=== PATIENT | male | born 1970 | race Caucasian/White ===

== ENCOUNTER 2016-08-05 11:46 | Emergency (ER) | payer MEDICAID ==
[~2016-08-05] VITALS: Ht 157.5 cm; Wt 67.2 kg
[~2016-08-05 11:46] MED LIST: [UNRECOGNIZED DRUG - CODE]
[2016-08-05 11:52] VITALS: Ht 157.5 cm; Wt 67.2 kg
== END 2016-08-05 14:28 | disposition left against medical advice (07) ==
LOC: FTE 11:46
DX: Z53.21 Procedure and treatment not carried out due to patient leaving prior to being seen by health care provider (principal)

== ENCOUNTER 2017-05-30 22:41 | Emergency (ER) | END 2017-05-31 03:00 | disposition home or self-care (01) ==

== ENCOUNTER 2018-08-14 05:11 | Emergency (ER) | payer MEDICAID ==
[~2018-08-14] VITALS: Ht 167.6 cm; Wt 71.8 kg
[~2018-08-14 05:11] MED LIST changes: +DICY10SO PO; +HYDR-4011 PO; +IBUP-1542 PO; +ONDA4TAB14 PO
[2018-08-14 05:15] VITALS: Ht 167.6 cm; Wt 71.8 kg
[2018-08-14] MEDS ORDERED: morphine 4 MG/ML VIAL IV STA (07:34)
[2018-08-14] MEDS ORDERED: FAMOTIDINE 20 MG INJ IV STA (07:34)
[2018-08-14] MEDS ORDERED: SOD CHLORIDE 0.9% 1,000 ML IV STA ×2 (07:34→08:23)
[2018-08-14] MEDS ORDERED: BELLADONNA/PHENOBARBITAL TAB PO STA (07:34)
[2018-08-14] MEDS ORDERED: ONDANSETRON 4 MG INJ IV STA (07:34)
[2018-08-14] MEDS ORDERED: LIDOCAINE/MYLANTA 40 ML BTL PO STA (07:34)
--- NOTE | 2018-08-14 07:40 | ERD ---
ER Documentation Chief Complaint Chief Complaint AP, N/V, DIARRHEA X 1 DAY HPI This is a 48-year-old male with a history of [id number] diabetes mellitus and hypertension. The patient indicates for the past 24 hours he has had multiple episodes of loose watery stools nausea and vomiting. Indicates that the vomiting is nonbloody nonbilious. He was seen yesterday at [facility] for the same symptoms and diagnosed with food poisoning and dehydration. The patient indicates that the dehydration has improved. However he still had persistent nausea with nonbloody nonbilious emesis. He also indicates he developed severe epigastric pain with a burning sensation in his abdomen. He indicates its worse just prior to emesis. He also indicates he has severe cramping in the left lower quadrant. The pain does not radiate to the back. He has had no frequency urgency or dysuria. He denies any hemoptysis or hematemesis no melanotic stools. No fevers or shaking or chills. No recent travel or prolonged immobilization. No shortness breath at rest or exertion. ROS All systems reviewed and are negative except as per history of present illness. Medications Home Meds Active Scripts Dicyclomine Hcl (DICYCLOMINE HCL) 10 Mg/5 Ml Solution, 10 MG PO Q6, #120 ML Prov:SEMAJ DEAN NP 05/31/17 Ondansetron (Ondansetron Odt) 4 Mg Tab.rapdis, 4 MG PO Q6H PRN for NAUSEA AND/OR VOMITING, #20 TAB Prov:SEMAJ DEAN NP 05/31/17 Hydrocodone/Acetaminophen ([place] 5-325 Tablet) 1 Each Tablet, 1 TAB PO Q6H PRN for SEVERE PAIN LEVEL 7-10, #20 TAB Prov:SEMAJ DEAN NP 05/31/17 Ibuprofen* (Motrin*) 600 Mg Tab, 600 MG PO Q6H PRN for PAIN AND OR ELEVATED TEMP, #30 TAB Prov:SEMAJ DEAN NP 05/31/17 Reported Medications PE/Shark Liver/Gly/Pet,Wh (Preparation H Cream) 54 Gm Cream.gm. 07/12/09 Allergies Allergies: Coded Allergies: No Known Allergies (Verified Allergy, Mild, 07/12/09) PMhx/Soc History of Surgery: Yes (APPY) Hx Neurological Disorder: No Hx Respiratory Disorders: No Hx Cardiac Disorders: No Hx Miscellaneous Medical Probl: Yes (HEMORRHOIDS) Hx Alcohol Use: Yes (3-4X PER WEEK) Hx Substance Use: Yes (PMH) Hx Tobacco Use: Yes (1/2 PACK DAY ) Physical Exam Vitals Vital Signs Date Temp Pulse Resp B/P (MAP) Pulse Ox O2 O2 Flow FiO2 Time Delivery Rate 08/14/18 99.5 104 20 165/89 99 05:15 (114) Physical Exam Constitutional:Well-developed. Well-nourished. HEENT:Normocephalic. Atraumatic.Pupils were equal round reactive to light. Dry mucous membranes.No tonsillar exudates. Neck: No nuchal rigidity. No lymphadenopathy. No posterior cervical spine tenderness or step-offs. Respiratory: Not using accessory muscles of respiration.Lungs were clear to auscultation bilaterally. No rhonchi. No rales. No wheezing. Cardiovascular: Regular rate regular rhythm.No murmurs. No rubs were appreciated.S1, S2 normal. Distal pulses are palpable 2+ bilaterally. GI: Abdomen was soft. . Non Distended. No pulsatile abdominal masses or bruits. No rebound. No guarding. Bowel sounds were present and normal. Muscle skeletal: Full range of motion of both the upper and lower extremities bilaterally.Normal muscle tone.No assymetrical calf tenderness or swelling. Skin: No petechia, no purpura. No lesions on the palms or the soles of the feet. No maculopapular rash. NEURO: Patient was alert, awake, orientated x3.No facial droop. Gait observed and normal with no ataxia.Speech had regular rate and rhythm. No focal neurol ogical deficits. Results 24 hrs Current Medications Medications Dose Sig/Yo Start Time Status Last (Trade) Ordered Route PRN Stop Time Admin Dose Reason Admin Sodium 1,000 ml @ Q1H STAT 08/14/18 Chloride 1,000 mls/hr IV 07:34 08/14/18 08:33 Morphine 4 mg ONCE STAT 08/14/18 DC Sulfate IV 07:34 08/14/18 (morphine) 07:36 Ondansetron 4 mg ONCE STAT 08/14/18 DC HCl (Zofran IV 07:34 08/14/18 Inj) 07:36 Famotidine 20 mg ONCE STAT 08/14/18 DC (Pepcid Iv) IV 07:34 08/14/18 07:36 40 ml ONCE STAT 08/14/18 DC Miscellaneous PO 07:34 08/14/18 Medication 07:36 (Gi Cocktail (2)) Belladonna/ 2 tab ONCE STAT 08/14/18 DC Phenobarbital PO 07:34 08/14/18 () 07:36 Dicyclomine 10 mg ONCE ONCE 08/14/18 HCl PO 08:00 08/14/18 (Bentyl) 08:01 Procedures/MDM This patient presented to the emergency department with abdominal pain and was seen and evaluated by myself. My differential diagnosis included but was not limited to abdominal aortic aneurysm, appendicitis, pancreatitis, perforated peptic ulcer, perforated viscus, Boerhaaves syndrome or visceral pain such as diverticulitis, DKA, esophagitis, hepatitis or bowel obstruction. The patient was placed on a surveillance system monitor, continuous pulse oximetry, and IV access was established by nursing staff. The patient showed signs of clinical dehydration. He was given a liter bolus of normal saline. He was given Zofran Pepcid and a GI cocktail. There is no evidence of pancreatitis. I do feel is necessary to obtain a CT scan of the patient's abdomen due to the persistence of his symptoms and abdominal discomfort. There is no evidence of diverticulitis or perforation. I did not obtain an EKG as he did not feel symptoms were result of an atypical myocardial infarction also the patient presented to the emergency department with an EKG performed at [place] [facility] yesterday at 6:13 PM. Patient had a sinus rhythm. With no ST segment elevation or depression. I did feel the patient's symptoms likely were result of a viral etiology. He had no severe electrolyte abnormalities. There is no leukocytosis. The patient was now able to tolerate oral intake. His pain had improved. He was given Bentyl for the abdominal cramping. He will be discharged home with antiemetics. The patient was discharged home in fair condition. They were instructed to return to the emergency department at any time if there was any worsening of their condition. The patient stated they would follow up with their PCP in the next 24-48 hours to initiate a suitable medication regimen under the care of their PCP as well as to allow their PCP to monitor any drug reactions. The patient was discharged home with prescriptions after they gave informed consent to the new medication. They were also fully informed by myself on the adverse effects and adverse drug interactions in order to provide adequate safeguards to prevent possible adverse reactions to medications. Departure Diagnosis: Primary Impression: Nausea vomiting and diarrhea Additional Impression: Abdominal pain Abdominal location: left lower quadrant Qualified Codes: R10.32 - Left lower quadrant pain Condition: Fair GIOVANA GILL MD August 14, 2018 07:40
[2018-08-14] MEDS ORDERED: ONDA4TAB14 PO (07:43)
[2018-08-14] MEDS ORDERED: FAMO-96 PO (07:43)
[2018-08-14] MEDS ORDERED: DICYCLOMINE 10 MG CAP PO ONE (08:00)
[2018-08-14] MEDS ORDERED: SOD CHLORIDE 0.9% 100 ML ONE (08:33)
[2018-08-14] MEDS ORDERED: IOHEXOL 300MG/ML 150 ML BTL ONE (08:33)
[2018-08-14] MEDS ORDERED: AMOX500C2 PO (10:51)
[2018-08-14 11:38] VITALS: BP 137/80; PULSE 97; RESP 18
== END 2018-08-14 11:47 | disposition home or self-care (01) ==
LOC: FTE 05:11
DX: R11.2 Nausea with vomiting, unspecified (principal); R19.7 Diarrhea, unspecified; R10.32 Left lower quadrant pain; E11.9 Type 2 diabetes mellitus without complications; I10 Essential (primary) hypertension; Z87.891 Personal history of nicotine dependence
CPT/HCPCS: 74177; 80053; 81001; 82150; 83690; 85025; 96361; 96374; 96375; J2270; J2405; J7030; Q9967; Z7502; Z7610; 81003

== ENCOUNTER 2018-08-15 16:59 | Emergency (ER) | payer MEDICAID ==
[~2018-08-15] VITALS: Ht 160 cm; Wt 72.3 kg
[~2018-08-15 16:59] MED LIST changes: +AMOX500C2 PO; +FAMO-96 PO
[2018-08-15 17:06] VITALS: Ht 160 cm; Wt 72.3 kg
[2018-08-15] MEDS ORDERED: LIDOCAINE/MYLANTA 40 ML BTL PO STA (19:56)
--- NOTE | 2018-08-15 21:00 | ERD ---
ER Documentation Chief Complaint Chief Complaint abd pain with n/v; was here yesterday for same reason; not in distress HPI This is a 48-year-old male who presents for evaluation of burning epigastric pain, that radiates upward, that has been going on for about the last week. The patient was told that he may have food poisoning, this is his third visit to the hospital, previously he went to [place], and earlier this week he he was seen here, where he had blood work, which showed a mild leukocytosis, otherwise unremarkable, as well as CT abdomen pelvis that was negative. He denies chest pain or shortness of breath, patient's symptoms have not changed or gotten worse. ROS All systems reviewed and are negative except as per history of present illness. Medications Home Meds Active Scripts Amoxicillin* (Amoxicillin*) 500 Mg Cap, 500 MG PO BID for 7 Days, CAP Prov:GIOVANA GILL MD 08/14/18 Famotidine* (Pepcid*) 20 Mg Tablet, 20 MG PO BID for 4 Days, TAB Prov:GIOVANA GILL MD 08/14/18 Ondansetron (Ondansetron Odt) 4 Mg Tab.rapdis, 4 MG PO Q6H PRN for NAUSEA AND/OR VOMITING, #20 TAB Prov:GIOVANA GILL MD 08/14/18 Discontinued Reported Medications PE/Shark Liver/Gly/Pet,Wh (Preparation H Cream) 54 Gm Cream.gm. 07/12/09 Discontinued Scripts Dicyclomine Hcl (DICYCLOMINE HCL) 10 Mg/5 Ml Solution, 10 MG PO Q6, #120 ML Prov:SEMAJ DEAN NP 05/31/17 Ondansetron (Ondansetron Odt) 4 Mg Tab.rapdis, 4 MG PO Q6H PRN for NAUSEA AND/OR VOMITING, #20 TAB Prov:SEMAJ DEAN NP 05/31/17 Hydrocodone/Acetaminophen ([place] 5-325 Tablet) 1 Each Tablet, 1 TAB PO Q6H PRN for SEVERE PAIN LEVEL 7-10, #20 TAB Prov:SEMAJ DEAN NP 05/31/17 Ibuprofen* (Motrin*) 600 Mg Tab, 600 MG PO Q6H PRN for PAIN AND OR ELEVATED TEMP, #30 TAB Prov:SEMAJ DEAN MARK 05/31/17 Allergies Allergies: Coded Allergies: No Known Allergies (Verified Allergy, Mild, 08/15/18) PMhx/Soc History of Surgery: Yes (APPY) Anesthesia Reaction: No Hx Neurological Disorder: No Hx Respiratory Disorders: No Hx Cardiac Disorders: No Hx Psychiatric Problems: No Hx Miscellaneous Medical Probl: Yes (HEMORRHOIDS) Hx Alcohol Use: No (3-4X PER WEEK) Hx Substance Use: No Hx Tobacco Use: Yes (1/2 PACK DAY ) Smoking Status: Current every day smoker Physical Exam Vitals Vital Signs Date Temp Pulse Resp B/P (MAP) Pulse Ox O2 O2 Flow FiO2 Time Delivery Rate 08/15/18 73 20 159/95 97 Room Air 20:35 (116) 08/15/18 70 21 157/80 99 Room Air 19:45 (105) 08/15/18 97.2 74 20 160/78 99 17:06 (105) Physical Exam Const: No acute distress Head: Atraumatic Eyes: Normal Conjunctiva ENT: Normal External Ears, Nose and Mouth. Neck: Full range of motion. No meningismus. Resp: Clear to auscultation bilaterally Cardio: Regular rate and rhythm, no murmurs Abd: Soft, mild epigastric tenderness, non distended. Normal bowel sounds Skin: No petechiae or rashes Back: No midline or flank tenderness Ext: No cyanosis, or edema Neur: Awake and alert Psych: Normal Mood and Affect Result Diagram: 08/15/18195708/[id number] Results 24 hrs Laboratory Tests Test 08/15/18 19:58 White Blood Count 9.7 10^3/ul Red Blood Count 4.48 10^6/ul Hemoglobin 14.1 g/dl Hematocrit 39.8 % Mean Corpuscular Volume 88.8 fl Mean Corpuscular Hemoglobin 31.5 pg Mean Corpuscular Hemoglobin Concent 35.4 g/dl Red Cell Distribution Width 12.5 % Platelet Count 181 10^3/UL Mean Platelet Volume 10.2 fl Immature Granulocytes % 0.400 % Neutrophils % 79.4 % Lymphocytes % 13.7 % Monocytes % 6.0 % Eosinophils % 0.0 % Basophils % 0.5 % Nucleated Red Blood Cells % 0.0 /100WBC Immature Granulocytes # 0.040 10^3/ul Neutrophils # 7.7 10^3/ul Lymphocytes # 1.3 10^3/ul Monocytes # 0.6 10^3/ul Eosinophils # 0.0 10^3/ul Basophils # 0.1 10^3/ul Nucleated Red Blood Cells # 0.0 10^3/ul Urine Color YELLOW Urine Clarity CLEAR Urine pH 9.0 Urine Specific [place] 1.014 Urine Ketones 1+ mg/dL Urine Nitrite NEGATIVE mg/dL Urine Bilirubin NEGATIVE mg/dL Urine Urobilinogen NEGATIVE mg/dL Urine Leukocyte Esterase NEGATIVE [place]/ul Urine Hemoglobin NEGATIVE mg/dL Urine Glucose 3+ mg/dL Urine Total Protein NEGATIVE mg/dl Sodium Level 136 mmol/L Potassium Level 3.6 mmol/L Chloride Level 101 mmol/L Carbon Dioxide Level 24 mmol/L Anion Gap 11 Blood Urea Nitrogen 12 mg/dl Creatinine 0.65 mg/dl Est Glomerular Filtrat Rate mL/min > 60 mL/min Glucose Level 216 mg/dl Calcium Level 8.8 mg/dl Total Bilirubin 0.8 mg/dl Direct Bilirubin 0.00 mg/dl Indirect Bilirubin 0.8 mg/dl Aspartate Amino Transf (AST/SGOT) 23 IU/L Alanine Aminotransferase (ALT/SGPT) 27 IU/L Alkaline Phosphatase 82 IU/L Troponin I < 0.012 ng/ml Total Protein 7.4 g/dl Albumin 4.5 g/dl Globulin 2.90 g/dl Albumin/Globulin Ratio 1.55 Lipase 171 U/L Current Medications Medications Dose Sig/Yo Start Time Status Last (Trade) Ordered Route PRN Stop Time Admin Dose Reason Admin 40 ml ONCE STAT 08/15/18 DC 08/15/18 Miscellaneous PO 19:56 08/15/18 20:02 Medication 19:58 (Gi Cocktail (2)) Procedures/MDM This is a 48-year-old male who presents for evaluation of recurrent abdominal pain. On exam the patient has no peritoneal signs, as noted above his work-up thus far has been negative, I noted an ultrasound in upper and performed to evaluate for cholelithiasis, this was done today and was negative. His labs showed no evidence of leukocytosis, no metabolic acidosis, EKG was done to evaluate for anginal equivalent, however suspicion was low and his EKG showed no evidence of ischemia and his troponin was negative. I suspect the most likely diagnosis is GERD, and I recommend follow-up with his PMD, as well as continued treatment with PPI, the patient agreed to this, at discharge she was in no distress. EKG: Rate/Rhythm: Normal Sinus Rhythm QRS, ST, T-waves: No changes consistent w/ acute ischemia Impression: No evidence of ischemia or arrhythmia Departure Diagnosis: Primary Impression: Abdominal pain Abdominal location: unspecified location Qualified Codes: R10.9 - Unspecified abdominal pain Condition: Stable Patient Instructions: Abdominal Pain JULIANO RANDALL MD August 15, 2018 21:00
[2018-08-15 21:40] VITALS: BP 156/87; PULSE 76; RESP 19
== END 2018-08-15 21:40 | disposition home or self-care (01) ==
LOC: E/R 16:59
DX: R10.13 Epigastric pain (principal); R11.2 Nausea with vomiting, unspecified; F17.210 Nicotine dependence, cigarettes, uncomplicated
CPT/HCPCS: 36415; 76705; 80053; 81003; 83690; 84484; 85025; 93005; Z7502; Z7610